=== PATIENT | male | born 2000 | race Caucasian/White ===

== ENCOUNTER 2018-02-23 08:37 | Emergency (ER) | payer OTHER ==
[~2018-02-23] VITALS: Ht 175.3 cm; Wt 56.7 kg
--- NOTE | ~2018-02-23 | EKG ---
[address] [address] ELECTROCARDIOGRAM REPORT Name: NABIL ALMAZAN Room #: DEP Emily#: [id number] Admission: 02/23/18 Attend Phys: Discharge: 02/23/18 Date of : [birth year] Report #: [id number] THIS REPORT FOR: //name// [facility] ED Test Date: 2018-02-23 Test Time: 09:26:10 Pat Name: NABIL ALMAZAN Department: Room: Gender: M Soil Engineer: TYRA : 2000 Requested By: Sherri Smith Order Number: [id number] MD: Darell Mckeon Measurements Intervals [place] Rate: 92 P: 57 PA: 165 QRS: 75 QRSD: 86 T: 54 QT: 367 QTc: 455 Interpretive Statements Sinus rhythm Normal tracing No previous ECG available for comparison Electronically Signed On 02-23-2018 16:36:37 HEAD SCORER by Darell Mckeon [email or web address] <ELECTRONICALLY SIGNED> By: Darell Mckeon MD, [facility] 02/23/18 1636 0926 0926 Darell Mckeon MD, FAC /EPI
[2018-02-23 09:29] LABS: POTASSIUM 3.1 mmol/L (3.5-5.1)
[2018-02-23 09:33] LABS: ABSOLUTE NEUTROPHILS 5.2 thou/uL (1.4-8.2); BASOPHILS 1.2 % (0.0-2.0); EOSINOPHILS 0.7 % (0.0-3.0); HEMATOCRIT 48.5 % (42.0-52.0); LYMPHOCYTES 15.3 % (24.0-44.0); MCH 34.4 pg (26.0-34.0); MCHC 35.1 g/dL (28.0-37.0); MONOCYTES 6.9 % (1.0-8.0); PLATELET COUNT 262 thou/uL (150-400); POLYS 75.9 % (36.0-66.0); RBC 4.94 mil/uL (4.50-6.00); RDW 14.4 % (10.5-14.5); WBC 6.8 thou/uL (4.0-11.0)
[2018-02-23 09:35] LABS: ALBUMIN 4.7 g/dL (3.4-5.0); MAGNESIUM 1.6 mg/dL (1.8-2.4); TOTAL BILIRUBIN 0.8 mg/dL (<0.1-1.0); TOTAL PROTEIN 8.5 g/dL (6.4-8.2)
[2018-02-23 10:07] LABS: URINE BILIRUBIN NEGATIVE (Negative); URINE BLOOD NEGATIVE (Negative); URINE CLARITY CLEAR; URINE COLOR YELLOW; URINE GLUCOSE-RANDOM* NEGATIVE (Negative); URINE KETONES NEGATIVE (Negative); URINE LEUKOCYTES-REFLEX NEGATIVE (Negative); URINE NITRITE-REFLEX NEGATIVE (Negative); URINE PROTEIN (DIPSTICK) NEGATIVE (Negative); URINE SPECIFIC GRAVITY 1.015 (1.005-1.035); URINE UROBILINOGEN 0.2 E.U./dl (0.2-1.0)
[2018-02-23] MEDS ORDERED: ONDANSETRON HCL4 M2 PO (12:06)
[2018-02-23 12:16] VITALS: BP 121/76
== END 2018-02-23 12:16 | disposition home or self-care (01) ==
LOC: ER 08:37
PROVIDERS: Physician Assistant
DX: E87.6 Hypokalemia (principal); R11.2 Nausea with vomiting, unspecified; R10.32 Left lower quadrant pain; R42 Dizziness and giddiness; E83.42 Hypomagnesemia; R63.0 Anorexia; F17.210 Nicotine dependence, cigarettes, uncomplicated